=== PATIENT | male | born 1985 | race Caucasian/White ===

== ENCOUNTER 2019-07-11 12:33 | Inpatient (IN) | payer MEDICAID, OTHER ==
[~2019-07-11] VITALS: Ht 167.6 cm; Wt 60.2 kg
[2019-07-11] MEDS ORDERED: LEVO25TA9 PO (13:56)
[2019-07-11] MEDS ORDERED: ALPR0.5T8 PO (13:56)
[2019-07-11] MEDS ORDERED: LEVO100 PO (13:59)
[2019-07-11 14:00] LABS: AMPHET/METH SCREEN,URINE NEGATIVE (NEGATIVE); BARBITURATE SCREEN, URINE NEGATIVE (NEGATIVE); BENZODIAZEPINES SCREEN,URINE POSITIVE (NEGATIVE); CANNABINOID SCREEN,URINE NEGATIVE (NEGATIVE); COCAINE SCREEN,URINE NEGATIVE (NEGATIVE); METHADONE SCREEN, URINE NEGATIVE (NEGATIVE); OPIATE SCREEN,URINE NEGATIVE (NEGATIVE)
[2019-07-11 14:01] LABS: PHENCYCLIDINE SCREEN,URINE NEGATIVE (NEGATIVE)
[2019-07-11 14:23] LABS: BASOPHILS % (AUTO) 0.8 % (0.0-2.0); EOSINOPHILS % (AUTO) 0.7 % (1.0-6.0); HEMATOCRIT 44.7 % (41-53); LYMPHOCYTES # (AUTO) 0.9 K/uL (1.0-4.8); LYMPHOCYTES % (AUTO) 19.2 % (22.0-44.0); MEAN CORPUSCULAR HEMOGLOBIN 29.2 pg (26.0-34.0); MEAN CORPUSCULAR HGB CONC 33.5 G/dL (31.0-37.0); MEAN CORPUSCULAR VOLUME 87 fL (80-100); MONOCYTES # (AUTO) 0.3 K/uL (0.1-1.0); MONOCYTES % (AUTO) 7.7 % (2.0-9.0); NEUTROPHILS # (AUTO) 3.2 K/uL (1.8-7.7); NEUTROPHILS % (AUTO) 71.6 % (40.0-70.0); PLATELET COUNT (AUTO) 263 K/uL (150-450); RED BLOOD CELL COUNT(AUTO) 5.13 MIL/uL (4.50-5.90); RED CELL DISTRIBUTION WIDTH 12.9 % (11.5-14.5)
[2019-07-11 14:33] LABS: ANION GAP 8 mmol/L (8-16); CALCIUM, TOTAL 9.4 mg/dL (8.8-10.5); CARBON DIOXIDE 29 mmol/L (22-29); CHLORIDE 103 mmol/L (98-107); CREATININE 1.07 mg/dL (0.60-1.30); GLOMERULAR FILTR. RATE CALC > 60 mL/min (>60); GLUCOSE,RANDOM 97 mg/dL (70-110); POTASSIUM 3.8 mmol/L (3.5-5.1); SODIUM SERUM 140 mmol/L (136-145); UREA NITROGEN, BLOOD 17 mg/dL (7-18)
[2019-07-11 14:39] LABS: ALANINE AMINOTRANSFERASE 27 U/L (12-78); ALBUMIN 4.4 g/dL (3.4-5.0); ALKALINE PHOSPHATASE 64 U/L (46-116); ASPARTATE AMINOTRANSFERASE 16 U/L (15-37); BILIRUBIN,TOTAL 1.1 mg/dL (0.1-1.0)
[2019-07-11] MEDS ORDERED: MAG HYDROX/AL HYDROX/SIMETH ES 30 ML SUSPENSION UDCUP PO PRN (15:15)
[2019-07-11] MEDS ORDERED: ACETAMINOPHEN 325 MG TABLET PO PRN (15:15)
[2019-07-11] MEDS ORDERED: GuaiFENesin/D-METHORPHAN [SUGAR-FREE] 200-20MG/10 ML SYRUP UDCUP PO PRN (15:15)
[2019-07-11] MEDS ORDERED: HydrOXYzine PAMOATE 50 MG CAPSULE PO PRN (15:15)
[2019-07-11] MEDS ORDERED: ALPRAZolam 0.5 MG TABLET PO PRN (15:15)
[2019-07-11] MEDS ORDERED: LOPERAMIDE HCL 2 MG CAPSULE PO PRN (15:15)
[2019-07-11] MEDS ORDERED: MAGNESIUM HYDROXIDE SUSPENSION 30 ML UDCUP PO PRN (15:15)
[2019-07-11] MEDS ORDERED: QUEtiapine FUMARATE 100 MG TABLET PO PRN ×2 (15:15)
[2019-07-11] MEDS: PREGABALIN 50 MG CAPSULE PO SCH ×2 (16:00→22:11)
[2019-07-11 20:45] VITALS: BP 145/79
[2019-07-11 21:22] VITALS: BP 160/77
[2019-07-11 21:26] VITALS: BP 160/77
[2019-07-11 21:45] VITALS: BP 139/86
[2019-07-11] MEDS: THIAMINE HCL 100 MG TABLET PO SCH (22:11)
[2019-07-11 23:45] VITALS: BP 128/90
[2019-07-12] VITALS (8 sets, daily range): BP systolic 124–151; BP diastolic 85–94
[2019-07-12 08:36] LABS: HEMOGLOBIN A1C 5.5 % (4.5-6.2)
[2019-07-12] MEDS: NALTREXONE HCL 50 MG TABLET PO SCH (09:00)
[2019-07-12] MEDS: THIAMINE HCL 100 MG TABLET PO SCH ×2 (09:00→16:13)
[2019-07-12] MEDS: LORazepam 2 MG TABLET PO SCH ×4 (09:00→20:08)
[2019-07-12] MEDS: MULTIVITAMINS WITH MINERALS, THERAPEUTIC TABLET PO SCH (09:00)
[2019-07-12] MEDS: PARoxetine HCL 20 MG TABLET PO SCH (09:00)
[2019-07-12] MEDS: PREGABALIN 50 MG CAPSULE PO SCH ×3 (09:00→16:13)
[2019-07-12] MEDS: FOLIC ACID 1 MG TABLET PO SCH (09:00)
[2019-07-12 09:08] LABS: CHOL/HDL RATIO 3.1 (4.2-7.3); THYROID STIMULATING HORMONE 10.25 uIU/mL (0.36-3.74)
[2019-07-12] MEDS ORDERED: PREG50 PO (18:08)
[2019-07-13 00:45] VITALS: BP 114/78
[2019-07-13] MEDS ORDERED: LEVOTHYROXINE SODIUM 100 MCG TABLET PO SCH (07:00)
[2019-07-13 07:06] VITALS: BP 119/80
[2019-07-13 07:23] LABS: INR 1.1 (0.9-1.1); PROTHROMBIN TIME 10.7 SEC (9.4-11.6)
[2019-07-13] MEDS: LORazepam 2 MG TABLET PO SCH ×2 (08:54→12:36)
[2019-07-13] MEDS: FOLIC ACID 1 MG TABLET PO SCH (08:54)
[2019-07-13] MEDS: THIAMINE HCL 100 MG TABLET PO SCH (08:55)
[2019-07-13] MEDS: NALTREXONE HCL 50 MG TABLET PO SCH (08:55)
[2019-07-13] MEDS: MULTIVITAMINS WITH MINERALS, THERAPEUTIC TABLET PO SCH (08:55)
[2019-07-13] MEDS: PREGABALIN 75 MG CAPSULE PO SCH ×2 (08:55→12:36)
[2019-07-13 09:00] VITALS: BP 133/89
[2019-07-13] MEDS: PARoxetine HCL 20 MG TABLET PO SCH (09:00)
[2019-07-13 09:09] VITALS: BP 133/89
[2019-07-13] MEDS ORDERED: LEVO25TA9 PO (14:00)
[2019-07-14] MEDS ORDERED: LORazepam 1 MG TABLET PO SCH (09:00)
== END 2019-07-13 16:00 | disposition home or self-care (01) | DRG 885 ==
LOC: EMS 12:38 → 3EI 20:17
PROVIDERS: ADMIT Psychiatry & Neurology Psychiatry; ATTEND Psychiatry & Neurology Psychiatry
DX: F32.2 Major depressive disorder, single episode, severe without psychotic features (principal); R45.851 Suicidal ideations; E03.9 Hypothyroidism, unspecified; F41.9 Anxiety disorder, unspecified; F41.0 Panic disorder [episodic paroxysmal anxiety]; Z91.19 Patient's noncompliance with other medical treatment and regimen
CPT/HCPCS: 83036; 84439; 84443; 86592; G0480